=== PATIENT | female | born 1995 | race African-American/Black ===

== ENCOUNTER 2020-03-12 12:09 | Inpatient (IN) | payer MEDICAID ==
[~2020-03-12] VITALS: Ht 170.2 cm; Wt 79.8 kg
[2020-03-12] MEDS ORDERED: SODIUM CHLORIDE 0.9% 1,000 ML IV ONE ×2 (12:23→13:15)
[2020-03-12 12:47] LABS: BG CARBOXYHEMOGLOBIN 0.3 % (0.5-1.5); BG DEOXYHEMOGLOBIN 2.1 % (0.0-5.0); BG METHEMOGLOBIN 0.1 % (0.0-1.5); BG OXYGEN SATURATION 97.9 % (92.0-98.5); BG OXYHEMOGLOBIN 97.5 % (94.0-97.0); BG PCO2 < 8.9 mmHg (35.0-45.0); BG PH 7.001 (7.350-7.450); BG PO2 138.5 mmHg (75.0-100.0); BG SAMPLE SITE RIGHT RADIAL; BG TOTAL HEMOGLOBIN 11.7 g/dL (12.0-18.0); BG VENT MODE ROOM AIR
[2020-03-12 13:44] LABS: HEMOGLOBIN. 10.6 g/dL (12.0-16.0); MEAN CORPUSCULAR HEMOGLOBIN 21.3 pg (28.0-32.0); MEAN CORPUSCULAR VOLUME 78.9 fL (81.0-99.0); MEAN PLATELET VOLUME 9.5 fl (7.4-10.4); PLATELET 528 x1000/uL (130-400); RED BLOOD CELL COUNT 4.95 mill/uL (4.2-5.4); RED CELL DISTRIBUTION WIDTH 21.8 % (11.6-14.6)
[2020-03-12 14:03] LABS: PLATELET ESTIMATE INCREASED
[2020-03-12] MEDS ORDERED: VANCOMYCIN 1 G PREMIX 200 ML IV ONE (14:15)
[2020-03-12] MEDS ORDERED: PIPERACILLIN/TAZ 3.375G PREMIX 50 ML IV ONE (14:15)
[2020-03-12 15:04] LABS: CLARITY URINE CLEAR (CLEAR); COLOR URINE YELLOW (YELLOW); KETONES URINE 4+ (NEGATIVE); LEUKOCYTE ESTERASE URINE NEGATIVE (NEGATIVE); NITRITE URINE NEGATIVE (NEGATIVE); OCCULT BLOOD URINE 1+ (NEGATIVE); PROTEIN URINE 2+ (NEGATIVE); SPECIFIC GRAVITY URINE 1.029 (1.005-1.030); UROBILINOGEN URINE 0.2 E.U./dL (0.2-1.0)
[2020-03-12 15:31] LABS: CHLORIDE 107 mEq/L (98-107)
[2020-03-12 15:34] LABS: INR 1.1; PROTHROMBIN TIME 11.5 sec (9.6-11.0)
[2020-03-12] MEDS ORDERED: INSULIN REGULAR (DRIP) 100 UNITS in SODIUM CHLORIDE 0.9% 99 ML IV ONE (15:34)
[2020-03-12] MEDS ORDERED: SODIUM CHLORIDE 0.9% 1,000 ML IV STA (15:34)
[2020-03-12 15:35] LABS: ETHANOL BLOOD < 10 mg/dL
[2020-03-12 15:37] LABS: BETA HYDROXYBUTYRATE 8.9 mMol/L (0.0-0.3)
[2020-03-12 15:43] LABS: *AMPHETAMINES SCREEN URINE NEGATIVE (NEGATIVE); *BARBITURATES SCREEN URINE NEGATIVE (NEGATIVE); *BENZODIAZEPINES SCREEN URINE NEGATIVE (NEGATIVE); *COCAINE SCREEN URINE NEGATIVE (NEGATIVE)
[2020-03-12 15:44] LABS: CANNABINOID URINE SCREEN NEGATIVE (NEGATIVE); METHADONE URINE SCREEN NEGATIVE (NEGATIVE); OPIATES URINE SCREEN NEGATIVE (NEGATIVE); PHENCYCLIDINE URINE SCREEN NEGATIVE (NEGATIVE)
[2020-03-12] MEDS ORDERED: SODIUM CHLORIDE 0.9% 1,000 ML IV SCH (16:38)
[2020-03-12] MEDS ORDERED: ACETAMINOPHEN 650MG SUPP PR PRN (16:45)
[2020-03-12] MEDS ORDERED: ONDANSETRON HCL 4MG/2ML INJ IV PRN (16:45)
[2020-03-12] MEDS ORDERED: MORPHINE SULFATE 2 MG/ML CPJ (NOT FOR IM USE) IV PRN (16:45)
[2020-03-12 16:51] LABS: CHLORIDE 108 mEq/L (98-107)
[2020-03-12 16:59] LABS: PHOSPHORUS 5.7 mg/dL (2.5-4.9)
[2020-03-12] MEDS ORDERED: DEXTROSE 50% WATER 50ML SYRINGE IV PRN ×2 (18:30)
[2020-03-12] MEDS: BLOOD SUGAR DIAGNOSTIC STRIP TEST SCH ×5 (19:00→23:09)
[2020-03-12 19:54] LABS: BG BASE EXCESS -28.5 mmol/L (-2.0-2.0); BG CARBOXYHEMOGLOBIN 0.5 % (0.5-1.5); BG DEOXYHEMOGLOBIN 1.5 % (0.0-5.0); BG FRACTION INSPIRED OXYGEN 21; BG HCO3 ACT 2.3 mmol/L (22.0-26.0); BG METHEMOGLOBIN 0.5 % (0.0-1.5); BG OXYGEN SATURATION 98.5 % (92.0-98.5); BG OXYHEMOGLOBIN 97.5 % (94.0-97.0); BG PCO2 11.1 mmHg (35.0-45.0); BG PH 6.929 (7.350-7.450); BG PO2 149.7 mmHg (75.0-100.0); BG SAMPLE SITE LEFT RADIAL; BG TOTAL HEMOGLOBIN 11.9 g/dL (12.0-18.0); BG VENT MODE ROOM AIR
[2020-03-12 20:00] VITALS: BP 99/73
[2020-03-12] MEDS ORDERED: SODIUM BICARBONATE 8.4% 1 MEQ/ML 50ML SYR IV NR (20:15)
[2020-03-12] MEDS ORDERED: SODIUM CHLORIDE 0.9% 2,000 ML IV NR (20:15)
[2020-03-12] MEDS ORDERED: SODIUM BICARBONATE 8.4% 1 MEQ/ML 50ML SYR IV ONE (20:15)
[2020-03-12] MEDS: INSULIN REGULAR (DRIP) 100 UNITS in SODIUM CHLORIDE 0.9% 99 ML IV SCH (20:33)
[2020-03-12] MEDS: ENOXAPARIN 40MG/0.4ML SYR SUBCUT SCH (20:41)
[2020-03-12 21:00] VITALS: BP 144/77
[2020-03-12 21:17] LABS: CHLORIDE 111 mEq/L (98-107)
[2020-03-12 21:25] LABS: PHOSPHORUS 4.6 mg/dL (2.5-4.9)
[2020-03-12 21:27] LABS: CREATINE KINASE 128 IU/L (26-192)
[2020-03-12 21:30] LABS: CREATINE KINASE MB FRACTION 1.6 ng/mL (0.5-3.6)
[2020-03-12] MEDS ORDERED: SODIUM BICARBONATE 100 MEQ in SODIUM CHLORIDE 0.45% 1,000 ML IV ONE (21:30)
[2020-03-12 21:37] VITALS: BP 138/66
[2020-03-12 22:00] VITALS: BP 127/70
[2020-03-12 23:00] VITALS: BP 124/64
[2020-03-12] MEDS: PIPERACILLIN/TAZOBACTAM 3.375 G in DEXT 5% WATER 100 ML IV SCH (23:59)
[2020-03-13] VITALS (47 sets, daily range): BP systolic 95–156; BP diastolic 50–99
[2020-03-13] MEDS: BLOOD SUGAR DIAGNOSTIC STRIP TEST SCH ×24 (00:37→23:48)
[2020-03-13 01:01] LABS: CHLORIDE 124 mEq/L (98-107)
[2020-03-13] MEDS ORDERED: DEXT 5%/0.45% NACL 1000ML 1,000 ML IV SCH (03:00)
[2020-03-13] MEDS ORDERED: SODIUM CHLORIDE 0.9% 1,000 ML IV SCH (04:00)
[2020-03-13] MEDS: INSULIN REGULAR (DRIP) 100 UNITS in SODIUM CHLORIDE 0.9% 99 ML IV SCH ×2 (04:25→21:29)
[2020-03-13 04:46] LABS: HEMATOCRIT. 33.7 % (36.0-48.0); MEAN CORPUSCULAR HEMOGLOBIN 21.2 pg (28.0-32.0); MEAN CORPUSCULAR VOLUME 71.8 fL (81.0-99.0); MEAN PLATELET VOLUME 8.7 fl (7.4-10.4); PLATELET 338 x1000/uL (130-400); RED CELL DISTRIBUTION WIDTH 20.2 % (11.6-14.6)
[2020-03-13 04:54] LABS: CHLORIDE 126 mEq/L (98-107)
[2020-03-13] MEDS ORDERED: DEXT 5%/0.9% NACL 1,000 ML IV SCH (05:00)
[2020-03-13 05:06] LABS: CREATINE KINASE 148 IU/L (26-192); LDL CHOLESTEROL 120 mg/dL (5-100)
[2020-03-13 05:07] LABS: HDL CHOLESTEROL 27 mg/dL (40-59)
[2020-03-13 05:11] LABS: CREATINE KINASE MB FRACTION 2.9 ng/mL (0.5-3.6)
[2020-03-13] MEDS: PIPERACILLIN/TAZOBACTAM 3.375 G in DEXT 5% WATER 100 ML IV SCH (06:42)
[2020-03-13] MEDS ORDERED: POTASSIUM CHLORIDE INJ 20 MEQ in DEXT 5%/0.9% NACL 1,000 ML IV SCH (07:00)
[2020-03-13] MEDS ORDERED: DEXT 5%/0.9% NACL KCL 20MEQ/L 1,000 ML IV SCH (08:00)
[2020-03-13 09:45] LABS: PLATELET ESTIMATE NORMAL
[2020-03-13] MEDS ORDERED: DEXT 5%/0.45% NACL 500ML 500 ML IV SCH (09:45)
[2020-03-13 09:50] LABS: CHLORIDE 127 mEq/L (98-107)
[2020-03-13] MEDS ORDERED: POTASSIUM CHLORIDE 20MEQ TABLET SR PO SCH (10:00)
[2020-03-13 10:30] LABS: BG BASE EXCESS -9.4 mmol/L (-2.0-2.0); BG CARBOXYHEMOGLOBIN 0.3 % (0.5-1.5); BG DEOXYHEMOGLOBIN 2.3 % (0.0-5.0); BG FRACTION INSPIRED OXYGEN 21; BG HCO3 ACT 14.3 mmol/L (22.0-26.0); BG METHEMOGLOBIN 0.4 % (0.0-1.5); BG OXYGEN SATURATION 97.7 % (92.0-98.5); BG PCO2 24.8 mmHg (35.0-45.0); BG PO2 106.1 mmHg (75.0-100.0); BG SAMPLE SITE RIGHT RADIAL; BG TOTAL HEMOGLOBIN 9.6 g/dL (12.0-18.0); BG VENT MODE ROOM AIR
[2020-03-13] MEDS ORDERED: POTASSIUM CHLORIDE INJ 40 MEQ in DEXT 5% WATER 250 ML IV SCH (12:00)
[2020-03-13 13:43] LABS: CHLORIDE 130 mEq/L (98-107)
[2020-03-13] MEDS: DEXT 5%/0.45% NACL 1000ML 1,000 ML IV SCH ×3 (14:49→23:48)
[2020-03-13 18:23] LABS: PHOSPHORUS 0.3 mg/dL (2.5-4.9)
[2020-03-13] MEDS: ENOXAPARIN 40MG/0.4ML SYR SUBCUT SCH (18:34)
[2020-03-14] VITALS (49 sets, daily range): BP systolic 98–145; BP diastolic 47–79
[2020-03-14] MEDS: BLOOD SUGAR DIAGNOSTIC STRIP TEST SCH ×7 (00:47→20:53)
[2020-03-14] MEDS: DEXT 5%/0.45% NACL 1000ML 1,000 ML IV SCH (05:07)
[2020-03-14 05:49] LABS: BASOPHILS % 0.4 % (0.0-2.0); EOSINOPHILS % 0.3 % (0.0-5.0); HEMATOCRIT. 27.1 % (36.0-48.0); HEMOGLOBIN. 8.4 g/dL (12.0-16.0); LYMPHOCYTES % 12.5 % (20.0-50.0); MEAN CORPUSCULAR HEMOGLOBIN 21.6 pg (28.0-32.0); MEAN CORPUSCULAR VOLUME 69.8 fL (81.0-99.0); MEAN PLATELET VOLUME 8.6 fl (7.4-10.4); MONOCYTES % 12.4 % (2.0-8.0); NEUTROPHILS % 74.4 % (40.0-76.0); PLATELET 258 x1000/uL (130-400); RED BLOOD CELL COUNT 3.88 mill/uL (4.2-5.4); RED CELL DISTRIBUTION WIDTH 20.7 % (11.6-14.6)
[2020-03-14] MEDS ORDERED: DEXT 5% WATER + KCL 20MEQ/L 1,000 ML IV SCH (08:00)
[2020-03-14] MEDS ORDERED: POTASSIUM CHLORIDE 20MEQ TABLET SR PO SCH (09:45)
[2020-03-14] MEDS ORDERED: POTASSIUM PHOS,M-BASIC-D-BASIC 30 MMOL in SODIUM CHLORIDE 0.9% 500 ML IV SCH (10:00)
[2020-03-14 11:06] LABS: PHOSPHORUS 0.8 mg/dL (2.5-4.9)
[2020-03-14] MEDS ORDERED: POTASSIUM CHLORIDE 20MEQ/PACKET PO SCH (12:00)
[2020-03-14] MEDS: DEXT 5%/0.2% NACL 1,000 ML IV SCH ×3 (12:19→19:24)
[2020-03-14] MEDS ORDERED: DOPAMINE 400MG/250ML PREMIX 250 ML IV PRN (12:45)
[2020-03-14] MEDS ORDERED: POTASSIUM PHOS,M-BASIC-D-BASIC 15 MMOL in DEXT 5% WATER 245 ML IV NR (16:30)
[2020-03-14] MEDS: ENOXAPARIN 40MG/0.4ML SYR SUBCUT SCH (16:46)
[2020-03-14 18:24] LABS: PHOSPHORUS 3.2 mg/dL (2.5-4.9)
[2020-03-14] MEDS ORDERED: SODIUM BICARBONATE 8.4% 1 MEQ/ML 50ML SYR IV ONE (20:00)
[2020-03-14] MEDS ORDERED: POTASSIUM CHLORIDE 20MEQ/PACKET PO ONE (20:00)
[2020-03-14] MEDS: INSULIN REGULAR (DRIP) 100 UNITS in SODIUM CHLORIDE 0.9% 99 ML IV SCH (20:11)
[2020-03-15] VITALS (27 sets, daily range): BP systolic 81–123; BP diastolic 53–78
[2020-03-15] MEDS: DEXT 5%/0.2% NACL 1,000 ML IV SCH ×5 (01:47→23:05)
[2020-03-15] MEDS ORDERED: POTASSIUM CHLORIDE 20MEQ TABLET SR PO NR (02:45)
[2020-03-15] MEDS: BLOOD SUGAR DIAGNOSTIC STRIP TEST SCH ×6 (04:00→21:00)
[2020-03-15 06:20] LABS: BASOPHILS % 0.3 % (0.0-2.0); EOSINOPHILS % 0.2 % (0.0-5.0); HEMATOCRIT. 23.3 % (36.0-48.0); HEMOGLOBIN. 7.2 g/dL (12.0-16.0); LYMPHOCYTES % 22.2 % (20.0-50.0); MEAN CORPUSCULAR HEMOGLOBIN 21.6 pg (28.0-32.0); MEAN CORPUSCULAR VOLUME 69.6 fL (81.0-99.0); MEAN PLATELET VOLUME 8.4 fl (7.4-10.4); MONOCYTES % 13.4 % (2.0-8.0); NEUTROPHILS % 63.9 % (40.0-76.0); PLATELET 196 x1000/uL (130-400); RED BLOOD CELL COUNT 3.35 mill/uL (4.2-5.4); RED CELL DISTRIBUTION WIDTH 21.2 % (11.6-14.6)
[2020-03-15 06:36] LABS: CHLORIDE 127 mEq/L (98-107)
[2020-03-15 06:45] LABS: PHOSPHORUS 2.2 mg/dL (2.5-4.9)
[2020-03-15 09:16] LABS: PLATELET ESTIMATE NORMAL
[2020-03-15] MEDS ORDERED: MAGNESIUM 2 G PREMIX 50 ML IV SCH (10:00)
[2020-03-15] MEDS ORDERED: POTASSIUM PHOS,M-BASIC-D-BASIC 30 MMOL in SODIUM CHLORIDE 0.9% 500 ML IV SCH (10:00)
[2020-03-15] MEDS: INSULIN GLARGINE UD 100 UNITS/ML SYR SUBCUT SCH ×2 (10:44→21:27)
[2020-03-15] MEDS: POTASSIUM CHLORIDE 20MEQ TABLET SR PO SCH ×2 (12:02→20:23)
[2020-03-15] MEDS: INSULIN LISPRO 100 UNITS/ML SUBCUT SCH ×5 (12:56→21:00)
[2020-03-15 16:53] LABS: CHLORIDE 126 mEq/L (98-107)
[2020-03-15] MEDS: DOXYCYCLINE HYCLATE 100MG CAPSULE PO SCH (17:56)
[2020-03-15] MEDS ORDERED: POTASSIUM CHLORIDE 20MEQ TABLET SR PO SCH (21:00)
[2020-03-16] VITALS (8 sets, daily range): BP systolic 122–147; BP diastolic 66–83
[2020-03-16] MEDS: DEXT 5%/0.2% NACL 1,000 ML IV SCH (04:05)
[2020-03-16 06:04] LABS: BASOPHILS % 0.4 % (0.0-2.0); EOSINOPHILS % 0.9 % (0.0-5.0); HEMATOCRIT. 22.9 % (36.0-48.0); HEMOGLOBIN. 7.1 g/dL (12.0-16.0); LYMPHOCYTES % 28.1 % (20.0-50.0); MEAN CORPUSCULAR HEMOGLOBIN 21.7 pg (28.0-32.0); MEAN CORPUSCULAR VOLUME 69.6 fL (81.0-99.0); MEAN PLATELET VOLUME 8.5 fl (7.4-10.4); MONOCYTES % 9.4 % (2.0-8.0); NEUTROPHILS % 61.2 % (40.0-76.0); PLATELET 180 x1000/uL (130-400); RED BLOOD CELL COUNT 3.28 mill/uL (4.2-5.4); RED CELL DISTRIBUTION WIDTH 20.7 % (11.6-14.6)
[2020-03-16 06:14] LABS: CHLORIDE 122 mEq/L (98-107)
[2020-03-16] MEDS: INSULIN LISPRO 100 UNITS/ML SUBCUT SCH ×4 (07:44→12:46)
[2020-03-16] MEDS: BLOOD SUGAR DIAGNOSTIC STRIP TEST SCH ×2 (07:44→11:51)
[2020-03-16] MEDS: DOXYCYCLINE HYCLATE 100MG CAPSULE PO SCH (08:10)
[2020-03-16] MEDS: POTASSIUM CHLORIDE 20MEQ TABLET SR PO SCH (08:10)
[2020-03-16] MEDS ORDERED: POTASSIUM CHLORIDE 20MEQ TABLET SR PO NR (10:00)
[2020-03-16] MEDS: INSULIN GLARGINE UD 100 UNITS/ML SYR SUBCUT SCH (10:05)
[2020-03-16] MEDS ORDERED: MAGNESIUM 4 G PREMIX 100 ML IV NR (11:00)
[2020-03-16] MEDS ORDERED: DOXY100C2 PO (12:07)
[2020-03-16] MEDS ORDERED: INSLIS SUBCUT (12:07)
[2020-03-16] MEDS ORDERED: LANTUSUD SUBCUT (12:07)
[2020-03-16 12:39] LABS: CHLORIDE 118 mEq/L (98-107)
== END 2020-03-16 14:30 | disposition home or self-care (01) | DRG 720 ==
LOC: ER 12:09 → EDBEDREQTM 15:38 → EDBEDREQSVC 15:38 → EDBEDREQ 15:38 → CVICU 16:16 → EDBEDREQTM 16:21 → EDBEDREQ 16:21 → CANRESERV 16:31 → ENRESERV 16:31 → CVICU 18:59 → MICUSO 03-13 17:33 → CVICU 03-15 04:00 → 5EST 03-15 12:52
PROVIDERS: ADMIT Internal Medicine; ATTEND Internal Medicine
DX: A41.9 Sepsis, unspecified organism (principal); E87.5 Hyperkalemia; E87.0 Hyperosmolality and hypernatremia; D72.810 Lymphocytopenia; D50.9 Iron deficiency anemia, unspecified; R80.9 Proteinuria, unspecified; R74.8 Abnormal levels of other serum enzymes; E87.6 Hypokalemia; K65.1 Peritoneal abscess; Z20.828 Contact with and (suspected) exposure to other viral communicable diseases; E10.10 Type 1 diabetes mellitus with ketoacidosis without coma; J96.00 Acute respiratory failure, unspecified whether with hypoxia or hypercapnia; L02.212 Cutaneous abscess of back [any part, except buttock and flank]; N17.9 Acute kidney failure, unspecified; K85.90 Acute pancreatitis without necrosis or infection, unspecified; E86.1 Hypovolemia; G92 Toxic encephalopathy; Z79.4 Long term (current) use of insulin; Z91.14 Patient's other noncompliance with medication regimen; Z88.1 Allergy status to other antibiotic agents; Z91.19 Patient's noncompliance with other medical treatment and regimen; Z82.49 Family history of ischemic heart disease and other diseases of the circulatory system; Z83.3 Family history of diabetes mellitus
CPT/HCPCS: 36415; 36600; 71045; 74176; 80048; 80053; 80061; 80305; 80320; 81003; 82010; 82150; 82270; 82375; 82550; 82553; 82728; 82805; 82962; 83036; 83540; 83550; 83605; 83735; 84100; 84145; 84443; 84484; 85025; 85044; 87635; 93005; 93970; 99291; J1650; J1815; J2405; J2543; J3370; J3475; J3480; J3490; J7030; J7040; J7050; J7060; G0480